=== PATIENT | female | born 1995 | race Two or more races ===

== ENCOUNTER 2017-01-04 18:34 | Emergency (ER) | payer OTHER ==
--- NOTE | 2017-01-04 21:12 | RAD ---
Indication: Epigastric and LEFT upper quadrant pain. History of pancreatitis at age 14. Comparison: April 16, 2013 ultrasound. Technique: Limited upper abdominal ultrasound. Report: 3.7 mm common bile duct. The gallbladder could not be visualized. The patient ate one hour prior to the exam favoring gallbladder contraction. Unremarkable well visualized pancreas. Negative for pancreatic duct dilatation. No peripancreatic fluid collections evident. Negative for ascites. IMPRESSION: No abnormality of the pancreas or common bile duct dilatation evident.
--- NOTE | 2017-01-04 21:26 | ED ---
Skin Complaint - HPI Summary HPI Summary: Patient presents with an itchy bump on the back of her neck that has been there "awhile". She denies known insult or injury. She denies redness, drainage or fevers. She also mentions that she has history of pancreatitis and over the last 3 days has begun to have recurring symptoms and wonders if she is having another episode. She denies N/V/D, constipation, SOB, CP or back pain. Her discomfort is in the left upper quadrant and is consistent with her last episode. She denies a change in diet or increase in alcohol consumption. - History of Current Complaint Chief Complaint: EDRashSkinAbscess Time Seen by Provider: 01/04/17 18:59 Stated Complaint: LUMP ON BACK OF NECK Hx Obtained From: Patient Onset/Duration: Started Days Ago - 3, Atraumatic Timing: Intermittent - after meals; skin is constant Onset Severity: Mild Current Severity: None Pain Intensity: 0 Skin Location: Neck Character: Pruritus Aggravating Symptom(s): Touch Alleviating Symptom(s): Nothing Associated Signs & Symptoms: Negative - Allergy/Home Medications Allergies/Adverse Reactions: Allergies Allergy/AdvReac Type Severity Reaction Status Date / Time No Known Allergies Allergy Verified 01/04/17 18:55 PMH/Surg Hx/FS Hx/Imm Hx GI History: Reports: Other GI Disorders - pancreatitis Infectious Disease History: No Infectious Disease History: Denies: Traveled Outside the [place] in Last 30 Days - Family History Known Family History: Positive: None - Social History Occupation: Employed Full-time Lives: With Family Alcohol Use: Occasionally Substance Use Type: Reports: None Smoking Status (MU): Never Smoked Tobacco Review of Systems Negative: Fever, Chills Positive: Abdominal Pain - intermittent LUQ pain Positive: Other - mole All Other Systems Reviewed And Are Negative: Yes Physical Exam Triage Information Reviewed: Yes Vital Signs On Initial Exam: Initial Vitals Temp Pulse Resp BP Pulse Ox 97.5 F 67 16 128/87 100 01/04/17 18:47 01/04/17 18:47 01/04/17 18:47 01/04/17 18:47 01/04/17 18:47 Vital Signs Reviewed: Yes Appearance: Positive: Well-Appearing, No Pain Distress, Well-Nourished Skin: Positive: Warm, Skin Color Reflects Adequate Perfusion, Dry, Soft, Other - Patient has numerous diffuse moles on her body and appears to have another mole on her neck that appears benign without swelling, redness or drainage. Head/Face: Positive: Normal Head/Face Inspection Eyes: Positive: EOMI, BRENT, Conjunctiva Clear ENT: Positive: Hearing grossly normal Neck: Positive: Supple, Nontender, No Lymphadenopathy Respiratory/Lung Sounds: Positive: Clear to Auscultation, Breath Sounds Present Cardiovascular: Positive: RRR Abdomen Description: Positive: Nontender, Soft. Negative: CVA Tenderness (R), CVA Tenderness (L), Distended, Guarding Bowel Sounds: Positive: Present Musculoskeletal: Negative: Edema Left, Edema Right Neurological: Positive: Sensory/Motor Intact, Alert, Oriented to Person Place, Time, NV Bundle Intact Distally, Normal Gait Psychiatric: Positive: Affect/Mood Appropriate AVPU Assessment: Alert Diagnostics - Vital Signs Vital Signs Temp Pulse Resp BP Pulse Ox 01/04/17 18:54 97.5 F 67 14 128/87 100 01/04/17 18:47 97.5 F 67 16 128/87 100 - Laboratory Lab Statement: Any lab studies that have been ordered have been reviewed, and results considered in the medical decision making process. - Ultrasound No standard instances Ultrasound Interpretation: No Acute Changes Ultrasound Interpretation Completed By: Radiologist Course/Dx - Differential Diagnoses - Skin Complaint Differential Diagnoses: Abscess, Allergic Reaction, Cellulitis, Foreign Body, Local Allergic Reaction, MRSA, Poison [place], Scabies, Urticaria - Diagnoses Provider Diagnoses: Benign mole, Abdominal pain Discharge - Discharge Plan Condition: Stable Disposition: HOME Referrals: No Primary Care Phys,NOPCP [Primary Care Provider] - [facility] [place] [facility] REFERRAL [Outside] Additional Instructions: Your test was negative for acute changes. Please call the number provided to establish care with a regular provider for follow-up care. Return to the emergency department if symptoms worsen.
[2017-01-04 21:34] VITALS: BP 147/76
== END 2017-01-04 21:33 | disposition home or self-care (01) ==
LOC: ED 18:34
DX: D22.9 Melanocytic nevi, unspecified (principal); R10.12 Left upper quadrant pain
CPT/HCPCS: 76705; 99282